=== PATIENT | female | born 1940 | race Caucasian/White ===

== ENCOUNTER → 2019-06-17 11:32 | Outpatient (REF) | payer MEDICARE, SELFPAY | LOC: ANHLAB 11:32 | PROVIDERS: Visit Provider Nurse Practitioner | DX: D49.2 Neoplasm of unspecified behavior of bone, soft tissue, and skin (principal) | CPT/HCPCS: 88305 ==

== ENCOUNTER → 2021-08-01 09:49 | Outpatient (REF) | payer MEDICARE, SELFPAY | LOC: ANHLAB 09:49 | PROVIDERS: Visit Provider Nurse Practitioner | DX: C44.212 Basal cell carcinoma of skin of right ear and external auricular canal (principal) | CPT/HCPCS: 88305; 88331 ==